=== PATIENT | female | born 1995 | race African-American/Black ===

== ENCOUNTER 2017-07-07 05:45 | Emergency (ER) | payer OTHER ==
[2017-07-07 07:37] LABS: URINE BLOOD (Dip) POC 1+ (NEGATIVE); URINE GLUCOSE (Dip) POC Negative (NEGATIVE); URINE KETONES (Dip) POC 2+ (NEGATIVE); URINE LEUKOCYTE EST (Dip) POC Trace (NEGATIVE); URINE NITRITE (Dip) POC Negative (NEGATIVE); URINE TOTAL PROTEIN POC Negative (NEGATIVE)
== END 2017-07-07 08:22 | disposition home or self-care (01) ==
LOC: FTE 05:45
DX: N39.0 Urinary tract infection, site not specified (principal)
CPT/HCPCS: 81003; 81025; 87086; 87591; 99283